=== PATIENT | female | born 1995 | race Caucasian/White ===

== ENCOUNTER 2022-09-15 12:03 | Outpatient (CLI) | payer OTHER, SELFPAY ==
[2022-09-15 12:41] LABS: Basophils Absolute Auto 0.1 K/mm3 (0.0-0.1); Eosinophils Absolute Auto 0.1 K/mm3 (0-0.3); Eosinophils Percent Auto 0.8 % (0-4.4); Hematocrit 32.6 % (37.0-47.0); Hemoglobin 11.2 g/dL (12.0-15.0); Immature Granulocyte Absolute 0.01 K/mm3 (0.00-0.031); Immature Granulocyte Percent A 0.2 % (0-0.5); Lymphocytes Absolute Auto 1.65 K/mm3 (0.9-3.2); Mean Corpuscular HGB Conc 34.4 g/dl (32-36); Mean Corpuscular Hemoglobin 31.5 pg (26-34); Mean Corpuscular Volume 91.6 fl (80-100); Mean Platelet Volume 10.2 fl (7.4-10.4); Monocytes Absolute Auto 0.5 K/mm3 (0.1-0.6); Monocytes Percent Auto 7.5 % (2.6-8.5); Neutrophils Absolute Auto 3.9 K/mm3 (1.3-6.7); Neutrophils Percent Auto 63.5 % (45.5-73.1); Platelet Count Result 227 k/mm3 (150-375); Red Blood Count 3.56 M/mm3 (4.2-5.4); Red Cell Distribution Width 11.3 % (11.5-14.5); White Blood Count 6.1 K/mm3 (4.5-10.0)
[2022-09-15 12:51] LABS: Hemoglobin A1C 4.8 % (<5.7)
[2022-09-15 13:27] LABS: Hepatitis B Surface Antigen Negative (Negative); Rubella IgG Antibody 29.6 IU/ML
[2022-09-15 13:33] LABS: HIV 1/2 Ab P24 Ag Result Negative (Negative)
[2022-09-15 17:16] LABS: Rapid Plasma Reagin Non-Reactive (NonReactive)
[2022-09-18 14:46] LABS: CMV IgG Antibody <0.60 U/mL (<0.60)
[2022-09-20 09:42] LABS: Varicella IgG Antibody >4000.00 Index (>=165.00)
== END 2022-09-15 12:04 | disposition home or self-care (01) ==
LOC: ANHLAB 12:04
PROVIDERS: PCP Student in an Organized Health Care Education/Training Program; Visit Provider Student in an Organized Health Care Education/Training Program
DX: N94.89 Other specified conditions associated with female genital organs and menstrual cycle (principal); E11.9 Type 2 diabetes mellitus without complications
CPT/HCPCS: 36415; 83036; 84702; 85025; 86592; 86644; 86703; 86747; 86762; 86787; 86850; 86900; 86901; 87086; 87340; G0432

== ENCOUNTER 2023-01-24 09:12 | Outpatient (CLI) | payer OTHER, SELFPAY ==
[2023-01-24 11:05] LABS: Hematocrit 33.3 % (37.0-47.0); Hemoglobin 10.8 g/dL (12.0-15.0); Mean Corpuscular HGB Conc 32.4 g/dl (32-36); Mean Corpuscular Volume 98.5 fl (80-100); Mean Platelet Volume 10.4 fl (7.4-10.4); Platelet Count Result 214 k/mm3 (150-375); Red Blood Count 3.38 M/mm3 (4.2-5.4); Red Cell Distribution Width 12.2 % (11.5-14.5); White Blood Count 9.6 K/mm3 (4.5-10.0)
[2023-01-24 11:09] LABS: Glucose 1 Hour PP 50gm Dose 97 mg/dL
[2023-01-24 11:50] LABS: HIV 1/2 Ab P24 Ag Result Negative (Negative)
== END 2023-01-24 09:13 | disposition home or self-care (01) ==
PROVIDERS: PCP Student in an Organized Health Care Education/Training Program; Visit Provider Student in an Organized Health Care Education/Training Program
DX: Z34.90 Encounter for supervision of normal pregnancy, unspecified, unspecified trimester (principal)
CPT/HCPCS: 36415; 82947; 85027; 86703; G0432

== ENCOUNTER 2023-12-17 16:50 | Emergency (ER) | payer OTHER, SELFPAY ==
[2023-12-17 17:00] VITALS: BP 123/75; PULSE 72; RESP 18; O2SAT 100
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
== END 2023-12-17 17:45 | disposition home or self-care (01) ==
PROVIDERS: Emergency Provider Nurse Practitioner Family
DX: S80.212A Abrasion, left knee, initial encounter (principal); S80.211A Abrasion, right knee, initial encounter; S91.312A Laceration without foreign body, left foot, initial encounter; V00.831A Fall from motorized mobility scooter, initial encounter; E11.9 Type 2 diabetes mellitus without complications; F41.9 Anxiety disorder, unspecified; F32.A Depression, unspecified; Z87.891 Personal history of nicotine dependence
CPT/HCPCS: 99212; G0463

== ENCOUNTER → 2023-12-19 13:53 | Outpatient (CLI) | payer OTHER, SELFPAY ==
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
== END ==
LOC: EXPBRAD 13:58
DX: M79.675 Pain in left toe(s) (principal); M25.561 Pain in right knee; M25.562 Pain in left knee
CPT/HCPCS: 73564; 73630

== ENCOUNTER 2025-03-23 11:22 | Emergency (ER) | payer OTHER, MEDICAID, SELFPAY ==
[2025-03-23 11:30] VITALS: BP 125/82; PULSE 80; RESP 16; TEMP 36.4; O2SAT 100
--- NOTE | 2025-03-23 11:43 | ED.FEMALEGU ---
HPI - Female Genitourinary General Chief complaint: Urogenital-Female Stated complaint: Urinary Problem Time Seen by Provider: 03/23/25 11:30 Source: patient and RN notes reviewed Mode of arrival: ambulatory Limitations: no limitations History of Present Illness HPI Narrative: 30-year-old female presents Express Care complaining of urinary symptoms since today.. Patient reports having dysuria, increased frequency, hesitancy, and blood in her urine. Patient denies any fevers, abdominal pain, body aches, chills, nausea, vomiting, diarrhea, flank pain, vaginal discharge, vaginal bleeding, or any other symptoms. Patient denies any concerns for STDs. Patient has not taken anything [id number] for symptoms. Patient denies any significant past medical history. Related Data Home Medications ?Medication ?Instructions ?Recorded ?Confirmed ?Last Taken ?Type metformin 1,000 mg tablet 1,000 mg PO DAILY 08/22/22 03/07/23 Unknown History sertraline 100 mg tablet 100 mg PO DAILY 08/22/22 03/23/25 Unknown History ferrous sulfate 325 mg (65 mg 325 mg PO DAILY 09/20/22 03/07/23 Unknown History iron) tablet vits no.126-ferrous fum tablet PO 02/21/23 03/07/23 Unknown History 28 mg iron-folic acid 800 mcg tablet (Classic ) buspirone .ROUTE 03/23/25 Unknown History hydroxyzine pamoate .ROUTE 03/23/25 Unknown History Allergies Allergy/AdvReac Type Severity Reaction Status Date / Time No Known Allergies Allergy Verified 03/23/25 11:36 Review of Systems Review of Systems: CONSTITUTIONAL: Denies fever, chills, body aches, or sweats. EYES: Denies visual changes, redness, or discharge. ENT: Denies rhinorrhea, congestion, sore throat, or otalgia. CARDIOVASCULAR: Denies chest pain, palpitations, or edema. RESPIRATORY: Denies cough or dyspnea. GASTROINTESTINAL: Denies abdominal pain, nausea, vomiting, or diarrhea. GENITOURINARY: Positive for dysuria, hesitancy, increased frequency, hematuria. Negative for vaginal bleeding or vaginal discharge. SKIN: Denies rash or itching. MUSCULOSKELETAL: Denies back pain, flank pain, joint pain, or myalgia. NEUROLOGIC: Denies headache, numbness, or weakness. PSYCHIATRIC: Denies anxiety or depression. All other systems reviewed are negative, except as documented in HPI. [facility] Past Medical History Medical History Depression Anxiety Diabetes Suppression of menses Surgical History Surgical History H/O wisdom tooth extraction History of hernia repair Family History Family History Sibling Diabetes mellitus Grandparent Diabetes mellitus Breast cancer Social History Social History Smoking status: Current every day smoker Alcohol intake: former Substance use: never Lack of Transportation: No Lack of Food: Never True Current Housing: I Have Housing Concerned About Future Housing: No Difficulty Paying Gas/Electric Bills: No Difficulty Paying for Meds: No Currently Unemployed: No Education: Associate Degree Difficulty w/ Childcare or Family Care: No Living arrangements: other Additional living arrangements comments: and child Occupation/Education: student Gender identity (if verbalized by the patient): Female Sexual Orientation (if Verbalized by the Patient): Straight or Heterosexual Comments At the time of my signature, I reviewed and agree with the nursing past medical, surgical, social, and family history. There is no relevant family history pertinent to the patient complaint. Exam Narrative: GENERAL: This is a well-nourished, well-developed adult, in no apparent distress. They are non ill-appearing, nontoxic appearing. HEAD: normocephalic, atraumatic. EYES: Sclera clear/white. Vision is grossly intact. Conjunctiva normal bilaterally. Extraocular movements intact. EARS: External ears normal,Hearing grossly intact. NOSE: External nose normal THROAT: Mucous membranes moist NECK: Normal range of motion CARDIOVASCULAR: Regular rate and rhythm. Normal S1-S2. No clicks, gallops, rubs, murmurs. RESPIRATORY: Respiratory rate normal, respiratory effort nonlabored, no respiratory distress. Lung sounds clear to auscultation throughout. Lung sounds equal bilaterally. No adventitious lung sounds. GASTROINTESTINAL: Abdomen soft, flat, mild suprapubic tenderness to palpation, nondistended. Bowel sounds are active. No hepato-splenomegaly, or palpable masses. No guarding or rigidity. No rebound tenderness. SKIN: warm, Dry, intact with no suspicious lesions or rash, good texture and turgor. NEURO: awake, alert, and oriented to person, place and time. There were no obvious focal neurologic abnormalities. EXTREMITIES: No joint tenderness, effusion, or edema noted. BACK: Nontender without deformity. No CVA tenderness. Course Course Emergency Course: Portions of this record may have been created with voice recognition software Level of Care: Express Care Visit Vital Signs Vital signs: Vital Signs Temperature 97.5 F L 03/23/25 11:30 Pulse Rate 80 03/23/25 11:30 Respiratory Rate 16 03/23/25 11:30 Blood Pressure 125/82 03/23/25 11:30 Pulse Oximetry 100 03/23/25 11:30 Oxygen Delivery Room Air 03/23/25 11:30 Temperature 97.5 F L 03/23/25 11:30 Pulse Rate 80 03/23/25 11:30 Respiratory Rate 16 03/23/25 11:30 Blood Pressure 125/82 03/23/25 11:30 Pulse Oximetry 100 03/23/25 11:30 Oxygen Delivery Room Air 03/23/25 11:30 MDM - Female Genitourinary MDM Narrative Medical decision making narrative: Urine dipstick shows leukocytes, 3+ blood, protein in urine. Urine culture pending. Symptoms consistent with urinary tract infection. Will treat with Macrobid. Discussed physical exam findings. Advised supportive measures and signs/symptoms to go to the ER. Pt is appropriate for outpt treatment and f/u. Differential Diagnosis Differential diagnosis: Likely urinary tract infection, cystitis and other (Pyelonephritis) Lab Data Attestation: I reviewed the patient's lab results. Labs: Lab Results 03/23/25 Range/Units 11:40 POC Urine Color Jojo POC Urine Clarity Cloudy POC Urine pH 6.5 POC Ur Specif [place] 1.025 POC Urine Protein 2+ (Negative) POC Ur Glucose (UA) Negative (Negative) POC Urine Ketones Negative (Negative) POC Urine Blood 3+ (Negative) POC Urine Nitrite Negative (Negative) POC Urine Bilirubin Negative (Negative) POC Urine Urobilinogen 0.2 POC U Leukocyte Esteras 1+ (Negative) Discharge Plan Discharge Clinical Impression: Urinary tract infection Qualifiers: Urinary tract infection type: site unspecified Hematuria presence: with hematuria Qualified Code(s): N39.0 - Urinary tract infection, site not specified Patient Disposition: Home Condition: Stable Instructions: Antibiotic Form, Urinary Tract Infection in Women (ED) Additional Instructions: Take the antibiotic as prescribed The urine will be sent of for a culture to identify what type of bacteria is causing your infection. If the culture shows that the antibiotic will not get rid of your infection, you will be notified and a new antibiotic will be called in for you. Increase water intake you will need to follow up with your PCP 3-5 days. Go to the ER for any worsening symptoms, abdominal pain, fevers, nausea, vomiting, or any other concerns Patient Language: British Prescriptions: New nitrofurantoin monohyd/m-cryst [Macrobid] 100 mg capsule 100 mg PO Q12H 5 Days Qty: 10 0RF Rx Instructions: must administer with a meal/food No Action hydroxyzine pamoate .ROUTE buspirone .ROUTE sertraline 100 mg tablet 100 mg PO DAILY metformin 1,000 mg tablet 1,000 mg PO DAILY Classic 28 mg iron- 800 mcg tablet PO ferrous sulfate 325 mg (65 mg iron) tablet 325 mg PO DAILY Follow-up/Referrals: Nata,Joselito Larson DO [Primary Care Provider, Unknown] Time of Disposition: 11:52
[2025-03-23 11:49] LABS: EDUAAPPEAR Cloudy; EDUABILI Negative (Negative); EDUABLOOD 3+ (Negative); EDUACOLOR1 Amber; EDUAGLUCOSE Negative (Negative); EDUAKETONE Negative (Negative); EDUALEUKO 1+ (Negative); EDUANITRATE Negative (Negative); EDUAPH 6.5; EDUAPROTEIN 2+ (Negative); EDUASPGRAVITY 1.025; EDUAUROBILI 0.2
== END 2025-03-23 11:55 | disposition home or self-care (01) ==
PROVIDERS: PCP Family Medicine
DX: N39.0 Urinary tract infection, site not specified (principal); F41.8 Other specified anxiety disorders; E11.9 Type 2 diabetes mellitus without complications; F17.200 Nicotine dependence, unspecified, uncomplicated
CPT/HCPCS: 81003; 87077; 87086; 87186; 99213; G0463

== ENCOUNTER 2025-04-23 12:02 | Emergency (ER) | payer OTHER, SELFPAY ==
[2025-04-23 12:18] VITALS: BP 122/74; PULSE 83; RESP 16; TEMP 36.3; O2SAT 99
[2025-04-23 12:53] LABS: EDINFLUASCREEN Negative (Negative); EDINFLUBSCREEN Negative (Negative)
[2025-04-23 12:53] LABS: EDCOVIDSCREEN Negative (Negative)
[2025-04-23 13:00] LABS: EDSTREPNEGPOS1 Negative (Negative)
--- NOTE | 2025-04-23 13:02 | ED_ITS ---
HPI - URI/Sore Throat General Chief Complaint: Upper Respiratory Infection Stated Complaint: Cough/Body aches/Fever Time Seen by Provider: 04/23/25 12:41 Source: patient and RN notes reviewed Mode of arrival: ambulatory Limitations: no limitations History of Present Illness HPI Narrative: 30-year-old female patient presents today complaining of 4 day history of fatigue with bilateral foot pain, sore throat, fever up to 102, and generalized body aches with mild cough for the past 2 days. She has tried no OTC medication for symptoms prior to arrival. Son was diagnosed with [id number] last week. Patient denies any lesions in the mouth or body. Related Data Home Medications ?Medication ?Instructions ?Recorded ?Confirmed ?Last Taken ?Type buspirone .Route 03/23/25 Unknown His tory hydroxyzine pamoate .Route 03/23/25 Unknown His tory venlafaxine 150 mg mg PO 04/23/25 Unknown Hist ory capsule,extended release 24 hr Allergies Allergy/AdvReac Type Severity Reaction Status Date / Time No Known Allergies Allergy Verified 04/23/25 12:16 [facility] Past Medical History Medical History Depression Anxiety Diabetes Suppression of menses Surgical History Surgical History H/O wisdom tooth extraction History of hernia repair Family History Family History Sibling Diabetes mellitus Grandparent Diabetes mellitus Breast cancer Social History Social History Smoking status: Current every day smoker Alcohol intake: former Substance use: never Lack of Transportation: No Lack of Food: Never True Current Housing: I Have Housing Concerned About Future Housing: No Difficulty Paying Gas/Electric Bills: No Difficulty Paying for Meds: No Currently Unemployed: No Education: Associate Degree Difficulty w/ Childcare or Family Care: No Living arrangements: other Additional living arrangements comments: and child Occupation/Education: student Gender identity (if verbalized by the patient): Female Sexual Orientation (if Verbalized by the Patient): Straight or Heterosexual Comments At time of signature, I have reviewed and agree with nursing past medical, surgical, social and family history unless otherwise noted. Please see nursing chart for further information. There is no relevant family history pertinent to the presenting complaint Exam Narrative: GENERAL: Well-appearing, well-nourished, and in no acute distress. HEAD: Normocephalic, atraumatic. EYES: EOMI. No redness or drainage. Conjunctivae normal. ENT: Mucous membranes pink and moist. Nares clear. No rhinorrhea. TMs normal bilaterally. Throat normal. Uvula midline. NECK: Normal AROM. Supple. No lymphadenopathy. CHEST: No respiratory distress. Clear to auscultation. HEART: Regular rate and rhythm. No murmur appreciated. Normal peripheral pulses. ABDOMEN: Soft, nontender, nondistended, normal active bowel sounds. MUSCULOSKELETAL: No bony tenderness. EXTREMITIES: Normal range of motion. No edema. SKIN: Warm, dry, no rash. Capillary refill normal. Normal skin turgor. NEURO: No focal deficits. Alert and oriented x3. Gait steady. PSYCH: Normal affect. No signs of depression or anxiety. Course Course Level of Care: Express Care Visit Vital Signs Vital signs: Vital Signs Temperature 97.4 F L 04/23/25 12:18 Pulse Rate 83 04/23/25 12:18 Respiratory Rate 16 04/23/25 12:18 Blood Pressure 122/74 04/23/25 12:18 Pulse Oximetry 99 04/23/25 12:18 Temperature 97.4 F L 04/23/25 12:18 Pulse Rate 83 04/23/25 12:18 Respiratory Rate 16 04/23/25 12:18 Blood Pressure 122/74 04/23/25 12:18 Pulse Oximetry 99 04/23/25 12:18 Reviewed MDM - URI/Sore Throat MDM Narrative Medical decision making narrative: 30-year-old female patient presents today complaining of 4 day history of fatigue with bilateral foot pain, sore throat, fever up to 102, and generalized body aches with mild cough for the past 2 days. She has tried no OTC medication for symptoms prior to arrival. Son was diagnosed with [id number] last week. Patient denies any lesions in the mouth or body. Normal physical exam. Influenza, COVID, and rapid strep negative. Strep culture pending. Symptoms likely viral in etiology. Discussed [id number] medication use and duration of illness. No prescription medications indicated at this time. Anticipatory guidance given. Vital signs stable. Differential Diagnosis Differential diagnosis: Likely upper respiratory infection, viral infection, i nfluenza and other (Strep throat, COVID-19) Lab Data Attestation: I reviewed the patient's lab results. Labs: Lab Results 04/23/25 04/23/25 04/23/25 Range/Units 12:51 12:52 12:58 POC Influenza A Ag Negative (Negative) POC Influenza B Ag Negative (Negative) POC SARS CoV-2 Ag Negative (Negative) POC Grp A Strep Screen Negative (Negative) Critical Care Time Critical Care Time Critical Care Time: No Discharge Plan Discharge Clinical Impression: Viral syndrome Patient Disposition: Home Condition: Stable Instructions: Viral Syndrome (ED) Additional Instructions: Your influenza, COVID-19, and rapid strep swab were negative today at [facility]. You will be notified in a few days if the culture comes back positive for strep, and appropriate antibiotics will be called in for you at that time. Your symptoms are likely due to a viral illness, which is not treated with antibiotics. Viral symptoms can be present for up to 7-10 days. Take Tylenol or ibuprofen for fever or pain. Rest and stay hydrated. Follow up with your PCP in 7 days if symptoms are not improving. Go to the ER immediately if you have any difficulty breathing or swallowing. Patient Language: Hebrew Prescriptions: No Action hydroxyzine pamoate .Route buspirone .Route venlafaxine 150 mg capsule,extended release 24hr PO Follow-up/Referrals: Nata,Joselito Larson, [Primary Care Provider, Unknown] Stand Alone Forms: Work/School Release IP Time of Disposition: 13:03
== END 2025-04-23 13:10 | disposition home or self-care (01) ==
PROVIDERS: Emergency Provider Nurse Practitioner; PCP Family Medicine
DX: B34.9 Viral infection, unspecified (principal); Z20.822 Contact with and (suspected) exposure to COVID-19; F17.200 Nicotine dependence, unspecified, uncomplicated; E11.9 Type 2 diabetes mellitus without complications; F41.9 Anxiety disorder, unspecified; F32.A Depression, unspecified
CPT/HCPCS: 87081; 87426; 87804; 87880; 99213; G0463